=== PATIENT | male | born 1975 | race Caucasian/White ===

== ENCOUNTER 2016-12-16 02:21 | Emergency (ER) | payer OTHER ==
--- NOTE | 2016-12-16 07:21 | Emergency Department Report ---
ED General Adult HPI - General Chief complaint: Pain General Stated complaint: HICCUPS/SOB Time Seen by Provider: 12/16/16 06:56 Source: patient Mode of arrival: Ambulatory Limitations: No Limitations - History of Present Illness Initial comments: Bleeding of persistent hiccups since yesterday morning. Relates this occurs after eating. Denies chest pain, nausea vomiting, shortness of breath, diaphoresis, weakness or dizziness, or syncope. -: Gradual Severity scale (0 -10): 5 - Related Data Previous Rx's Medication Instructions Recorded Last Taken Type Famotidine [Pepcid] 20 mg PO BID #60 tablet 06/04/16 Unknown Rx Famotidine [Pepcid] 10 mg PO BID #20 tablet 12/16/16 Unknown Rx Metoclopramide [Reglan] 10 mg PO PRN #20 tab 12/16/16 Unknown Rx Allergies Allergy/AdvReac Type Severity Reaction Status Date / Time No Known Allergies Allergy Verified 07/06/13 07:59 ED Review of Systems ROS: Stated complaint: HICCUPS/SOB Other details as noted in HPI ED Past Medical Hx - Past Medical History Previous Medical History?: No Hx Congestive Heart Failure: No Hx Diabetes: No Hx Asthma: No Hx COPD: No - Surgical History Past Surgical History?: No - Social History Smoking Status: Current Every Day Smoker Substance Use Type: Alcohol - Medications Home Medications: Home Medications Medication Instructions Recorded Confirmed Last Taken Type Famotidine [Pepcid] 20 mg PO BID #60 tablet 06/04/16 Unknown Rx Famotidine [Pepcid] 10 mg PO BID #20 tablet 12/16/16 Unknown Rx Metoclopramide [Reglan] 10 mg PO PRN #20 tab 12/16/16 Unknown Rx ED Physical Exam - General Limitations: No Limitations General appearance: alert, in no apparent distress - Head Head exam: Present: atraumatic, normocephalic - Eye Eye exam: Present: normal appearance - ENT ENT exam: Present: mucous membranes moist - Neck Neck exam: Present: normal inspection - Respiratory Respiratory exam: Present: normal lung sounds bilaterally. Absent: respiratory distress, wheezes, rales, rhonchi, stridor, chest wall tenderness, accessory muscle use, decreased breath sounds, prolonged expiratory - Cardiovascular Cardiovascular Exam: Present: regular rate - GI/Abdominal GI/Abdominal exam: Present: soft. Absent: distended, tenderness, guarding, rebound, rigid, normal bowel sounds, mass, pulsatile mass - Extremities Exam Extremities exam: Present: normal inspection, full ROM. Absent: pedal edema - Back Exam Back exam: Present: normal inspection, full ROM. Absent: CVA tenderness (R), CVA tenderness (L) - Neurological Exam Neurological exam: Present: alert, oriented X3, normal gait - Skin Skin exam: Present: warm, dry, intact, normal color. Absent: rash, cyanosis, diaphoretic - Other Other exam information: Patient sleeping soundly on initial physical exam. Patient now been in the ED approximately 2 hours in fast track with no noted singultus. ED Course Vital Signs 12/16/16 04:20 Temperature 99.6 F Pulse Rate 75 Respiratory 20 Rate Blood Pressure 147/100 [Right] O2 Sat by Pulse 100 Oximetry Critical care attestation.: If time is entered above; I have spent that time in minutes in the direct care of this critically ill patient, excluding procedure time. ED Disposition Clinical Impression: Singultus Disposition: DISCHARGED TO HOME OR SELFCARE Is pt being admited?: No Condition: Stable Instructions: Hiccups (ED) Prescriptions: Famotidine [Pepcid] 10 mg PO BID #20 tablet Metoclopramide [Reglan] 10 mg PO PRN #20 tab Referrals: PRIMARY CARE, [Primary Care Provider] - 3-5 Days Forms: Work/School Release Form(ED)
--- NOTE | 2016-12-16 09:17 | XRay Report ---
FINAL REPORT EXAM: XR CHEST ROUTINE 2V HISTORY: hiccups TECHNIQUE: Chest, PA and lateral PRIORS: None. FINDINGS: The heart size is normal. Mediastinal contours are normal. Pulmonary vasculature is not congested. There is a band of airspace disease in the left lower lobe which is likely atelectasis. There is also some focal subsegmental atelectasis anteriorly which is likely in the right middle lobe. No convincing infiltrates are seen. There are no pleural effusion seen. There is no evidence of pneumothorax. IMPRESSION: Platelike atelectasis in the left lower lobe and right middle lobe. No convincing infiltrate.
[2016-12-16 09:49] VITALS: BP 145/87
== END 2016-12-16 09:58 | disposition home or self-care (01) ==
LOC: ED 02:21
DX: R06.6 Hiccough (principal); F17.200 Nicotine dependence, unspecified, uncomplicated
CPT/HCPCS: 71020; 99283